=== PATIENT | female | born 1990 | race Caucasian/White ===

== ENCOUNTER 2022-02-27 21:42 | Emergency (ER) | payer BC ==
[~2022-02-27] VITALS: Ht 157.5 cm; Wt 43.5 kg
[2022-02-27 22:03] VITALS: BP_SYST 109
--- NOTE | 2022-02-27 22:21 | NUR ---
Patient triaged and placed in waiting room. VS checked and patient appears in no acute distress at this time. Accompanied by family, awaiting available bed, and MD notified of need for MSE.
[2022-02-27 23:15] LABS: BASOPHILS # (AUTO) 0.1 K/uL (0.0-0.2); BASOPHILS % (AUTO) 1.2 % (0.0-2.0); EOSINOPHILS # (AUTO) 0.2 K/uL (0.0-0.4); EOSINOPHILS % (AUTO) 2.2 % (0.0-4.0); HEMATOCRIT 37.8 % (36-48); LYMPHOCYTES # (AUTO) 1.5 K/uL (1.0-5.5); LYMPHOCYTES % (AUTO) 20.8 % (20.5-51.5); MEAN CORPUSCULAR VOLUME 94 fL (79.0-98.0); MONOCYTES # (AUTO) 0.3 K/uL (0.0-1.0); MONOCYTES % (AUTO) 4.4 % (1.7-9.3); NEUTROPHILS # (AUTO) 5.3 K/uL (1.8-7.7); NEUTROPHILS % (AUTO) 71.4 % (40.0-70.0); PLATELET COUNT (AUTO) 250 K/uL (130-430); RED BLOOD CELL COUNT(AUTO) 4.01 MIL/uL (4.2-6.2); RED CELL DISTRIBUTION WIDTH 12.6 % (9.0-15.0); WHITE BLOOD COUNT (AUTO) 7.5 K/uL (4.8-10.8)
[2022-02-27 23:32] LABS: ANION GAP 8 (5-15); CALCIUM 9.6 mg/dL (8.4-11.0); CHLORIDE 101 mmol/L (98-107); CREATININE 0.82 mg/dL (0.55-1.30); GLUCOSE 143 mg/dL (70-99); POTASSIUM 3.7 mmol/L (3.5-5.1); UREA NITROGEN, BLOOD 10 mg/dL (8-21)
[2022-02-27 23:50] LABS: ALANINE AMINOTRANSFERASE 14 U/L (12-78); ASPARTATE AMINOTRANSFERASE 16 U/L (10-37); HCG,QUANTITATIVE 0 mIU/ML (0-6); LIPASE 70 U/L (73-393); TOTAL BILIRUBIN 0.3 mg/dL (0.0-1.0)
[2022-02-27 23:56] LABS: GFR AFRICAN AMERICAN 105 mL/min (>90)
--- NOTE | 2022-02-28 00:25 | NUR ---
Patient ambulatory to bed 4 for evaluation and treatment
--- NOTE | 2022-02-28 00:25 | NUR ---
Patient presents to ED from home with c/o intermitten abd pain and syncope. Patient denies any pmh or medications at this time. Patient states "I was at a concert and right before it started I passed out and my boyfriend brought me here. The pain in my abdomen has been going on for 6 months but I dont have pain all the time just sometimes." Patient's significant other (boyfriend) at bedside. Nad noted at this time.
--- NOTE | 2022-02-28 01:25 | NUR ---
ER MD Garcia at bedside speaking with patient.
--- NOTE | 2022-02-28 01:42 | NUR ---
Patient sitting upright in bed with side rails raised. Patient's significant other at bedside. Nad noted at this time.
--- NOTE | 2022-02-28 02:02 | NUR ---
PATIENT DC HOME. Patient given written and verbal discharge instructions and verbalizes understanding. CHANDAN RAVI MD discussed with patient the results and treatment provided. Patient in stable condition. ID arm band removed. IV catheter removed intact and dressing applied, no active bleeding. Rx of given. Patient educated on pain management and to follow up with PMD. Pain Scale 0/10. Opportunity for questions provided and answered. Medication side effect fact sheet provided.
[2022-02-28 02:11] VITALS: BP_SYST 118
== END 2022-02-28 02:11 | disposition home or self-care (01) ==
LOC: SED 21:42
DX: R55 Syncope and collapse (principal); R10.9 Unspecified abdominal pain; R11.10 Vomiting, unspecified; Z79.899 Other long term (current) drug therapy
CPT/HCPCS: 36415; 80053; 82962; 83690; 84484; 84702; 85025; 93005; 99284